=== PATIENT | male | born 1995 | race Caucasian/White ===

== ENCOUNTER 2018-12-13 14:08 | Emergency (ER) | payer OTHER, SELFPAY ==
[2018-12-13 14:09] VITALS: BP 123/97; PULSE 90; RESP 16; TEMP 36.6; O2SAT 97; BMI 27.0
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
[2018-12-13 15:25] VITALS: BP 135/93; PULSE 79; RESP 16; O2SAT 99
== END 2018-12-13 15:26 | disposition home or self-care (01) ==
PROVIDERS: Emergency Provider Emergency Medicine
DX: S20.219A Contusion of unspecified front wall of thorax, initial encounter (principal); S40.211A Abrasion of right shoulder, initial encounter; V43.53XA Car driver injured in collision with pick-up truck in traffic accident, initial encounter; Y93.I9 Activity, other involving external motion; Y92.410 Unspecified street and highway as the place of occurrence of the external cause; Y99.8 Other external cause status
CPT/HCPCS: 71046; 99283